=== PATIENT | female | born 1990 | race African-American/Black ===

== ENCOUNTER 2022-08-10 21:35 | Emergency (ER) | payer SELFPAY ==
--- OUTSIDE RECORDS SUMMARY | 2022-08-10 21:39 | XMS REPORT | Continuity of Care Document ---
:1990 Author Organization [facility] t Address [address] [place] [address] Care Team Providers Name Role Phone Asked, No Pcp Primary Care Physician Unavailable Juany BARAKAT, Edgar Nichols Attending Clinician Problems This patient has no known problems. Allergies, Adverse Reactions, Alerts Allergy Allergy Status Severity Reaction(s) Onset Inactive Treating Comm ents Source Name Type Date Date Clinician Azam Ibrahim Active Other (See 2021-08 unk Met cristal ty to Comments) 09-09 adverse 00:00: Hospita reaction 00 l s to drug Social History Social Habit Start Date Stop Date Quantity Comments Source Sex Assigned At [birth year] [facility] 00:00:00 00:00:00 Smoking Status Start Date Stop Date Source Tobacco smoking consumption unknown [facility] Medications This patient has no known medications. Vital Signs Vital Name Observation Time Observation Value Comments Source Systolic blood 2022-07-10 07:39:27 144 mm[Hg] [facility] pressure Diastolic blood 2022-07-10 07:39:27 90 mm[Hg] [facility] pressure Heart rate 2022-07-10 07:39:27 74 /min [facility] Body temperature 2022-07-10 07:39:27 36.72 Shanda [facility] Respiratory rate 2022-07-10 07:39:27 18 /min [facility] Oxygen saturation in 2022-07-10 07:39:27 99 /min [facility] Arterial blood by Pulse oximetry BMI 2022-07-10 07:35:00 38.01 kg/m2 [facility] Body height 2022-07-10 07:35:00 172.7 cm [facility] Body weight 2022-07-10 07:35:00 113.399 kg [facility] Procedures Procedure Date / Time Performed Performing Clinician Sourc e RESPIRATORY PATHOGEN 2022-07-10 07:45:00 [facility] PANEL WITH COVID-19 RT-PCR Encounters Start End Encounter Admission Attending Care Care Encounter Source Date/Time Date/Time Type Type Clinicians Facility Department ID 2022-07-10 2022-07-10 Emergency Juany .[id number] [facility] 01:36:00 19:51:[id number] [facility] [id number] Hospit [id number] l .8 2022-07-10 2022-07-10 Emergency JUANY [facility] [id number] [place] 00:00:00 00:00:00 EDGAR [address] 2022-07-10 2022-07-10 Travel [id number] [facility] 00:00:00 00:00:[id number] 3.430.2.7 0.2.7.3.698 [facility] [id number] 084.8 l .8 Results This patient has no known results.
[2022-08-10 22:12] LABS: Absolute Lymphocytes (CBC) 1.6 K/uL (0.7-4.9); Hematocrit 38.7 % (36.0-45.0); Lymphocytes % 26.8 % (15.3-44.8); MCV 76.7 fL (80-100); MPV 8.3 fL (7.6-11.3); RBC Red Blood Cell Count 5.04 M/uL (3.86-4.86)
--- NOTE | 2022-08-10 22:25 | RAD REPORT ---
EXAM DESCRIPTION: Diana Single View08/10/2022 10:07 pm CLINICAL HISTORY: Chest pain COMPARISON: none FINDINGS: The lungs appear clear of acute infiltrate. The heart is normal size IMPRESSION: No acute abnormalities displayed
[2022-08-10 22:31] LABS: Albumin 3.5 g/dL (3.4-5.0); Bilirubin Total 0.1 mg/dL (0.2-1.0); Magnesium 2.1 mg/dL (1.6-2.4); Potassium 3.6 mmol/L (3.5-5.1); Protein, Total 7.5 g/dL (6.4-8.2); Troponin High Sensitivity 4.2 pg/mL (<58.9)
[2022-08-10] MEDS ORDERED: KETOROLAC 30 MG/ML INJ ONE (23:26)
--- NOTE | 2022-08-11 00:01 | ER ---
Nurse's Notes [facility] Name: Heavenly Shabazz Age: 31 yrs Sex: Female : 1990 Arrival Date: 08/10/2022 Time: 21:43 Bed 17 [facility] MD: Diagnosis: Myalgia Presentation: 08/10 21:51 Chief complaint: Tingling sensation in both arms, burning sensation from the waist hb down, and BLE swelling x 2 weeks. Coronavirus screen: At this time, the client does not indicate any symptoms associated with coronavirus-19. Ebola Screen: No symptoms or risks identified at this time. Initial Sepsis Screen: Does the patient meet any 2 criteria? No. Patient's initial sepsis screen is negative. Does the patient have a suspected source of infection? No. Patient's initial sepsis screen is negative. Risk Assessment: Do you want to hurt yourself or someone else? Patient reports no desire to harm self or others. Onset of symptoms was July 27, 2022. 21:51 Method Of Arrival: Ambulatory hb 21:51 Acuity: ELIECER 3 hb Historical: - Allergies: 21:53 Codeine; hb - Immunization history:: Adult Immunizations up to date, Client reports having NOT received the Covid vaccine. - Social history:: Smoking status: Patient denies any tobacco usage or history of. Screenin:00 [facility] ED Fall Risk Assessment (Adult) History of falling in the last 3 months, kb3 including since admission No falls in past 3 months (0 pts) Confusion or Disorientation No (0 pts) Intoxicated or Sedated No (0 pts) Impaired Gait No (0 pts) Mobility Assist Device Used No (0 pt) Altered Elimination No (0 pt) Score/Fall Risk Level 0 - 2 = Low Risk Oriented to surroundings, Maintained a safe environment, Educated pt \T\ family on fall prevention, incl call for assistance when getting out of bed, Assessed \T\ reinforced patient's understanding of fall precautions, Hourly rounding (assess needs \T\ fall precautionary measures) done. 22:00 Abuse screen: Denies threats or abuse. Denies injuries from another. kb3 22:00 Nutritional screening: No deficits noted. Tuberculosis screening: No symptoms or risk kb3 factors identified. Assessment: 22:00 Reassessment: Patient appears in no apparent distress at this time. No changes from kb3 previously documented assessment. General: Appears in no apparent distress. Behavior is calm, cooperative. 22:00 Pain: Complains of pain in head, chest, right arm, left arm, right leg and left leg kb3 Pain does not radiate. Pain currently is 10 out of 10 on a pain scale. Quality of pain is described as burning, Pain began 2 weeks. Cardiovascular: Heart tones present Capillary refill < 3 seconds Patient's skin is warm and dry. Respiratory: No deficits noted. Airway is patent Respiratory effort is even, unlabored. Vital Signs: 21:45 BP 146 / 88; Pulse 87; Resp 18; Pulse Ox 100% ; kb3 21:51 BP 149 / 91; Pulse 87; Resp 16; Temp 98.1; Pulse Ox 100% on R/A; Weight 127.01 kg; hb Height 5 ft. 7 in. (170.18 cm); Pain 10/10; 08/11 00:00 BP 141 / 71; Pulse 80; Resp 20; Pulse Ox 99% ; kb3 08/10 21:51 Body Mass Index 43.85 (127.01 kg, 170.18 cm) hb ED Course: 08/10 21:43 Patient arrived in ED. ja2 21:45 [facility] kb 21:45 Alfonso Cunha MD is Attending Physician. kb 21:52 Triage completed. hb 21:53 Arm band placed on. hb 22:00 Patient has correct armband on for positive identification. Bed in low position. Call kb3 light in reach. Pulse ox on. NIBP on. 22:00 No provider procedures requiring assistance completed. Patient maintains SpO2 kb3 saturation greater than 95% on room air. 22:03 Inserted saline lock: 20 gauge in right antecubital area, using aseptic technique. ke1 22:03 CBC with Diff Sent. ke1 22:03 D-Dimer Sent. ke1 22:04 Magnesium Sent. ke1 22:04 NT PRO-BNP Sent. ke1 22:04 Troponin HS Sent. ke1 22:04 CMP Sent. ke1 22:08 XRAY Chest (1 view) In Process Unspecified. EDMS 22:35 Kasandra Conley, RN is Primary Nurse. kb3 08/11 00:16 IV discontinued, intact, bleeding controlled, No redness/swelling at site. kb3 Administered Medications: 08/10 23:31 Drug: Ketorolac 15 mg Route: IVP; Site: right antecubital; kb3 08/11 00:20 Follow up: Response: No adverse reaction; Pain is decreased kb3 00:08 Drug: SOLU-Medrol (methylPrednisoLONE) 125 mg Route: IVP; Site: right antecubital; kb3 00:19 Follow up: Response: No adverse reaction kb3 00:08 Drug: Gabapentin 300 mg Route: PO; kb3 00:19 Follow up: Response: No adverse reaction kb3 Medication: 08/10 22:00 VIS not applicable for this client. kb3 Outcome: 08/11 00:01 Discharge ordered by MD. kb 00:16 Discharged to home via wheelchair. kb3 00:16 Condition: stable 00:16 Discharge instructions given to patient, Instructed on discharge instructions, follow up and referral plans. medication usage, Demonstrated understanding of instructions, follow-up care, medications, Prescriptions given X 2. 00:21 Patient left the ED. kb3 Signatures: Dispatcher [employer] EDMS Heike Keating, COTA-C COTA-CkZuleyka Jama, RN RN Angela Hernandez Kouassi, RN RN ke1 Kasandra Conley RN RN kb3
--- NOTE | 2022-08-11 00:01 | EDPHYS ---
Physician Documentation [facility] Name: Heavenly Shabazz Age: 31 yrs Sex: Female : 1990 Arrival Date: 08/10/2022 Time: 21:43 Bed 17 Private MD: ED Physician Alfonso Cunha HPI: 08/10 23:50 This 31 yrs old Black Female presents to ER via Ambulatory with complaints of Pain All kb Over, Ankle Swelling, Leg Swelling, Chest Pain. 23:50 Pt reports pain all over body and swelling for 2 weeks. States swelling has gotten much kb better, but still having pains to body. . Onset: The symptoms/episode began/occurred 2 week(s) ago. Severity of symptoms: At their worst the symptoms were moderate in the emergency department the symptoms are unchanged. The patient has not experienced similar symptoms in the past. The patient has not recently seen a physician. Historical: - Allergies: 21:53 Codeine; hb - Immunization history:: Adult Immunizations up to date, Client reports having NOT received the Covid vaccine. - Social history:: Smoking status: Patient denies any tobacco usage or history of. ROS: 23:48 Respiratory: Negative for shortness of breath, cough, wheezing, and pleuritic chest kb pain. 23:48 Constitutional: Positive for body aches. 23:48 All other systems are negative. Exam: 23:49 Constitutional: This is a well developed, well nourished patient who is awake, alert, kb and in no acute distress. Head/Face: Normocephalic, atraumatic. ENT: Moist Mucous membranes Cardiovascular: Regular rate and rhythm with a normal S1 and S2. No gallops, murmurs, or rubs. No pulse deficits. Respiratory: Respirations even and unlabored. No increased work of breathing. Talking in full sentences Abdomen/GI: Soft, non-tender. No distention Skin: Warm, dry with normal turgor. Normal color. Neuro: Awake and alert, GCS 15, oriented to person, place, time, and situation. Moves all extremities. Normal gait. Psych: Awake, alert, with orientation to person, place and time. Behavior, mood, and affect are within normal limits. 23:49 Musculoskeletal/extremity: Extremities: grossly normal except: noted in the right leg and left leg: pain, swelling, ROM: intact in all extremities, Circulation is intact in all extremities. Sensation intact. Weight bearing: able to fully bear weight. 23:52 ECG was reviewed by the Attending Physician. kb Vital Signs: 21:45 BP 146 / 88; Pulse 87; Resp 18; Pulse Ox 100% ; kb3 21:51 BP 149 / 91; Pulse 87; Resp 16; Temp 98.1; Pulse Ox 100% on R/A; Weight 127.01 kg; hb Height 5 ft. 7 in. (170.18 cm); Pain 10/10; 08/11 00:00 BP 141 / 71; Pulse 80; Resp 20; Pulse Ox 99% ; kb3 08/10 21:51 Body Mass Index 43.85 (127.01 kg, 170.18 cm) hb MDM: 08/10 21:45 Patient medically screened. kb 23:48 Data reviewed: vital signs, nurses notes. Data interpreted: Pulse oximetry: on room air kb is 100 %. Interpretation: normal. 08/11 00:00 Counseling: I had a detailed discussion with the patient and/or guardian regarding: the kb historical points, exam findings, and any diagnostic results supporting the discharge/admit diagnosis, lab results, radiology results, the need for outpatient follow up, a family practitioner, to return to the emergency department if symptoms worsen or persist or if there are any questions or concerns that arise at home. 08/10 21:49 Order name: CBC with Diff; Complete Time: 22:16 kb 08/10 21:49 Order name: D-Dimer; Complete Time: 22:33 kb 08/10 21:49 Order name: Magnesium; Complete Time: 22:33 kb 08/10 21:49 Order name: NT PRO-BNP; Complete Time: 22:33 kb 08/10 21:49 Order name: Troponin HS; Complete Time: 22:33 kb 08/10 21:49 Order name: CMP; Complete Time: 22:33 kb 08/10 21:49 Order name: XRAY Chest (1 view); Complete Time: 22:33 kb 08/10 21:49 Order name: EKG; Complete Time: 21:49 kb 08/10 21:49 Order name: Cardiac monitoring; Complete Time: 23:51 kb 08/10 21:49 Order name: EKG - Nurse/Tech; Complete Time: 23:51 kb 08/10 21:49 Order name: IV Saline Lock; Complete Time: 22:04 kb 08/10 21:49 Order name: Labs collected and sent; Complete Time: 22:27 kb 08/10 21:49 Order name: O2 Per Protocol; Complete Time: 23:51 kb 08/10 21:49 Order name: O2 Sat Monitoring; Complete Time: 23:51 kb EC/17 23:52 Rate is 72 beats/min. Rhythm is regular. QRS [place] is Normal. SD interval is normal at kb 162 msec. QRS interval is normal at 90 msec. QT interval is normal at 405 msec. Administered Medications: 23:31 Drug: Ketorolac 15 mg Route: IVP; Site: right antecubital; kb3 08/11 00:20 Follow up: Response: No adverse reaction; Pain is decreased kb3 00:08 Drug: SOLU-Medrol (methylPrednisoLONE) 125 mg Route: IVP; Site: right antecubital; kb3 00:19 Follow up: Response: No adverse reaction kb3 00:08 Drug: Gabapentin 300 mg Route: PO; kb3 00:19 Follow up: Response: No adverse reaction kb3 Disposition Summary: 08/11/22 00:01 Discharge Ordered Location: Home kb Condition: Stable kb Diagnosis - Myalgia kb Followup: kb - With: Emergency Department - When: As needed - Reason: Worsening of condition Followup: kb - With: Private Physician - When: 2 - 3 days - Reason: Recheck today's complaints, Continuance of care, Re-evaluation by your physician Discharge Instructions: - Discharge Summary Sheet kb - Muscle Pain, Adult kb - Neuropathic Pain kb Forms: - Medication Reconciliation Form kb - Thank You Letter kb - Antibiotic Education kb - Prescription Opioid Use kb Prescriptions: - Neurontin 300 mg Oral Capsule - take 1 capsule by ORAL route At bedtime; 20 capsule; Refills: 0, Product kb Selection Permitted - Prednisone 20 mg Oral Tablet - take 1 tablet by ORAL route once daily for 5 days; 5 tablet; Refills: 0, kb Product Selection Permitted Signatures: Dispatcher [employer] Heike Domínguez FNP-C FNP-Ckb Baxter, Heather RN RN Kasandra Conley RN RN kb3
[2022-08-11] MEDS ORDERED: METHYLPREDNISOLONE 125 MG INJ ONE (00:05)
[2022-08-11] MEDS ORDERED: GABAPENTIN 300 MG CAP ONE (00:05)
[2022-08-11 01:19] VITALS: TEMP 98.1
[2022-08-11 01:24] VITALS: BP 141/71; O2SAT 99
--- NOTE | 2022-08-13 15:20 | EKG ---
Test Date: 2022-08-10 Test Time: 23:47:59 Transition Assistant: SILVINO MEASUREMENT RESULTS: Intervals: Rate: 72 NV: 162 QRSD: 90 QT: 370 QTc: 405 Holden: P: 55 NV: 162 QRS: 31 T: 21 INTERPRETIVE STATEMENTS: Normal sinus rhythm Cannot rule out Anterior infarct, age undetermined Abnormal ECG No previous ECG available for comparison Electronically Signed On 08-13-22 15:16:48 ARCHITECTURE INSTRUCTOR by Felix Hull
== END 2022-08-11 00:21 | disposition home or self-care (01) ==
LOC: ER 21:35
DX: M79.10 Myalgia, unspecified site (principal); Z88.5 Allergy status to narcotic agent
CPT/HCPCS: 36415; 71045; 80053; 83735; 83880; 84484; 85025; 85379; 93005; 96374; 96375; 99284; J2930